=== PATIENT | female | born 1960 | race Caucasian/White ===

== ENCOUNTER 2019-03-17 09:30 | Day surgery (SDC) | payer OTHER ==
[2019-03-16 14:38] VITALS: BMI 32.0
[2019-03-17 10:40] VITALS: TEMP 98.7
[2019-03-17 14:05] VITALS: BP 140/83; PULSE 77
--- NOTE | 2019-03-18 18:50 | PATH ---
Surgical Pathology Report Patient Name: LUCERO MARRERO [facility]. Rec. #: [id number] /Age/Gender: 1960 (Age: 58) / F Account: [id number] Location: [facility]-ENDOSCOPY Taken: 03/17/2019 Received: 03/17/2019 Reported: 03/18/2019 Physicians: Gerardo Graham D.O. Specimen(s) Received A: POLYP RIGHT COLON B: POLYP SIGMOID C: POLYP RECTUM Clinical History Positive Cologuard Postoperative diagnosis: Colon polyp, diverticulosis Final Diagnosis A. COLON, RIGHT, POLYP, BIOPSY: HYPERPLASTIC POLYP. B. SIGMOID COLON, POLYP, BIOPSY: HYPERPLASTIC POLYP. C. RECTUM, POLYP, BIOPSY: HYPERPLASTIC POLYP. Electronically Signed Serenity Lebron M.D. Gross Description A. Received in formalin, labeled "polyp right colon" is a lewis, irregular portion of soft tissue measuring 0.3 cm. in greatest dimension. The specimen is submitted in toto in one cassette. B. Received in formalin, labeled "polyp sigmoid" is a lewis, irregular portion of soft tissue measuring 0.2 cm. in greatest dimension. The specimen is submitted in toto in one cassette. C. Received in formalin, labeled "polyp rectum" is a lewis, irregular portion of soft tissue measuring 0.1 cm. in greatest dimension. The specimen is submitted in toto in one cassette. MLSZ/03/17/2019 sanml/03/17/2019
== END 2019-03-17 13:15 | disposition home or self-care (01) ==
LOC: JASU-ENDO 09:30
PROVIDERS: ATTEND Internal Medicine Gastroenterology
PROC: 0DBN8ZX Excision of Sigmoid Colon, Via Natural or Artificial Opening Endoscopic, Diagnostic (ICD-10-PCS; 2019-03-17)
PROC: 0DBP8ZX Excision of Rectum, Via Natural or Artificial Opening Endoscopic, Diagnostic (ICD-10-PCS; 2019-03-17)
PROC: 0DBK8ZX Excision of Ascending Colon, Via Natural or Artificial Opening Endoscopic, Diagnostic (ICD-10-PCS; principal; 2019-03-17 10:45)
DX: K63.5 Polyp of colon (principal); K57.30 Diverticulosis of large intestine without perforation or abscess without bleeding; K64.8 Other hemorrhoids; R19.5 Other fecal abnormalities; E03.9 Hypothyroidism, unspecified; E78.00 Pure hypercholesterolemia, unspecified; I34.1 Nonrheumatic mitral (valve) prolapse; J45.909 Unspecified asthma, uncomplicated
CPT/HCPCS: 88305-TC